=== PATIENT | male | born 1950 | race Caucasian/White ===

== ENCOUNTER 2017-12-02 15:51 | Emergency (ER) | payer OTHER ==
[~2017-12-02] VITALS: Ht 180.3 cm; Wt 83.9 kg
[2017-12-02] MEDS ORDERED: MOBIC15 MG PO (16:01)
[2017-12-02] MEDS ORDERED: LEXAPRO 10 MG T10 M1 PO (16:01)
[2017-12-02] MEDS ORDERED: KEFLEX500 M1 PO (16:01)
[2017-12-02] MEDS ORDERED: CIPRO500 MG PO (16:49)
[2017-12-02] MEDS ORDERED: AUGMENTIN 875-1 EACH PO (16:49)
[2017-12-02 17:02] VITALS: BP 122/73
== END 2017-12-02 17:03 | disposition home or self-care (01) ==
LOC: M.ERS 15:51
DX: L03.115 Cellulitis of right lower limb (principal); F41.9 Anxiety disorder, unspecified; F32.9 Major depressive disorder, single episode, unspecified